=== PATIENT | male | born 1990 | race Caucasian/White ===

== ENCOUNTER 2020-09-24 12:00 | Outpatient (CLI) | payer SELFPAY ==
--- NOTE | 2020-09-24 14:33 | WPDPFTINT ---
PFT Interpretation DOS: 09/24/2020 REQUESTING: EDGAR Ferreira; MD Lonny REASON FOR TESTING: Shortness of breath PULMONARY FUNCTION TESTS Results are reliable and reproducible. Spirometry: The FEV1 is 96% predicted, 3.79 L. The FVC is 105% predicted, 5 L. The FEV1% is slightly decreased, 74%. The FEF25%-75% is decreased at 65%. After bronchodilator, there is a 43% increase in the small airways flows, FEF25%-75%, which is significant. Lung volumes: The total lung capacity is 100%, normal. Slow vital capacity is 105%, normal. Residual volume is 84% predicted, normal. RV/TLC is 22%, normal, indicating that there is no air trapping. Airway resistance is 92%, normal. Diffusion: DLCO is 106%. Flow volume loop: The flow volume loop shows mild scooping of the expiratory limb. IMPRESSION: This study shows a mild obstructive ventilatory impairment in the small airways with a response to bronchodilator in the small airways. In the proper clinical setting, this can be consistent with asthma. The lung volumes and diffusion capacity are normal. Kiya Parsons MD PFT Procedure Performed PFT Procedure Performed Spirometry with Pre/Post Bronchodilator Plethysmography (Lung Vol) Diffusing Cap (DLCO) Flow Vol Loop
== END 2020-09-24 12:01 | disposition home or self-care (01) ==
LOC: CHSCARD 12:03
PROVIDERS: PCP Family Medicine; Visit Provider Family Medicine
DX: R06.02 Shortness of breath (principal)
CPT/HCPCS: 94060; 94726; 94729

== ENCOUNTER 2022-09-05 11:58 | Emergency (ER) | payer OTHER, SELFPAY ==
--- NOTE | ~2022-09-05 | CT_ITS ---
EXAMINATION: CT abdomen pelvis wo con DATE: 09/05/2022 12:34 INDICATION: Left flank and groin pain TECHNIQUE: Computed tomography (CT) of the abdomen and pelvis was performed without intravenous contr ast. The dose-length product was 839.90 mGy-cm. Automated exposure control and iterative reconstructi on technique were employed. COMPARISON: No prior studies for comparison. FINDINGS: Lung bases unremarkable. Heart size normal. No significant pleural or pericardial effusion. Small hiatal hernia. No significant vascular abnormality. No lymphadenopathy. There are surgical priscila nges of cholecystectomy and appendectomy. Nonobstructive bowel gas pattern. No abnormal pelvic masses or fluid collections. No evidence for hernia. There is a 2 mm nonobstructing right renal stone. No l eft renal or ureteral stones. No hydronephrosis. Bladder is not well distended, although unremarkable . No abnormal pelvic masses or fluid collections. Mild lumbar spondylosis. IMPRESSION: 1. No acute abdominal abnormality. 2: Punctate 2 mm nonobstructing right renal stone. Reviewed, dictated and finalized at location A.
[2022-09-05 12:01] VITALS: BP 149/59; PULSE 85; RESP 18; TEMP 36.5; O2SAT 99
[2022-09-05 12:04] VITALS: BP 149/89; PULSE 85; RESP 18; TEMP 36.5; O2SAT 99
--- NOTE | 2022-09-05 12:12 | ED.BACK ---
HPI - Back Pain/Injury General Chief Complaint: Back Pain/Injury Stated Complaint: abdominal/back pain Time Seen by Provider: 09/05/22 11:59 Source: patient and family Mode of arrival: ambulatory Limitations: no limitations History of Present Illness HPI Narrative: this is a 32-year-old gentleman that presents with back pain initially was left upper back settled into his left flank area with radiation into his left groin currently there is no fever chills no nausea vomiting. He did take a dose of muscle relaxant that helped his pain currently pain level is markedly improved down to about a 2/10 with no nausea vomiting no fever chills no diarrhea constipation. No previous history of kidney stones. MD elicited complaint: back pain Onset (ago): hour(s) Timing: improved Severity: mild Quality: dull and aching Location: left flank Radiation: abdomen and groin Related Data Allergies Allergy/AdvReac Type Severity Reaction Status Date / Time Penicillins Allergy Anaphylaxis Verified 09/05/22 12:03 Review of Systems Review of Systems: All systems reviewed & are unremarkable except as noted in HPI and below PMFSH Past Medical History Medical History Patient denies medical problems Exam Const: General: healthy appearing Nutritional Appearance: well nourished Orientation/consciousness: patient oriented x3 HENMT: Head: normal to inspection Face and sinus: normal facial exam Mouth: Yes Normal oral and palatal mucosa present Eyes: Conjunctivae: conjunctivae normal Pupils: Equal, round and reactive pupils present Neck: Neck: normal visual inspection Chest: Chest palpation & inspection: normal inspection of the chest Resp: Effort & Inspection: normal respiratory effort Auscultation: clear to auscultation bilaterally Cardio: Rate: regular rate Rhythm: regular rhythm GI: GI Palp: Yes Soft to palpation Auscultation: normal bowel sounds : General: Yes bladder normal to palpation Urinary Catheter: Urinary Catheter: patent and draining Back/Spine/Pelvis: Back: CVA tenderness Skin: General skin exam: normal color Rashes: no rashes Wounds: no wounds Neuro: General: patient oriented x3, moves all extremities and no meningeal signs Extrem: General: normal to inspection Psych: Mental Status: mental status grossly normal Affect: normal affect Attitude: cooperative Course Course Emergency Course: urinalysis performed and reviewed as well as CBC and CMP and CT scan of the abdomen pelvis without contrast performed and reviewed with patient and family. patient declined pain medication at this time. LFTs were markedly elevated the patient received IV fluids and advised to follow-up with his primary care. Vital Signs Vital signs: Vital Signs Temperature 36.5 C 09/05/22 12:01 Pulse Rate 85 09/05/22 12:01 Respiratory Rate 18 09/05/22 12:01 Blood Pressure 149/59 H 09/05/22 12:01 Pulse Oximetry 99 09/05/22 12:01 Oxygen Delivery Room Air 09/05/22 12:01 Temperature 36.5 C 09/05/22 12:04 Pulse Rate 85 09/05/22 12:04 Respiratory Rate 18 09/05/22 12:04 Blood Pressure 149/89 H 09/05/22 12:04 Pulse Oximetry 99 09/05/22 12:04 Oxygen Delivery Room Air 09/05/22 12:04 Critical Care Time Critical Care Time Critical Care Time: No Discharge Plan Discharge Clinical Impression: Nephrolithiasis, Abnormal LFTs Additional Instructions: advised take medicine as prescribed, and with elevated liver function tests should follow up with primary care physician within 1 week for further evaluation treatment. Prescriptions: New cyclobenzaprine 10 mg tablet 10 mg PO TID Qty: 20 0RF Follow-up/Referrals: Lonny,MD Geovany [Primary Care Provider] -
[2022-09-05 12:29] LABS: Basophils Absolute Auto 0.04 K/mm3 (0.00-0.10); Basophils Percent Auto 0.3 % (0.0-1.0); Eosinophils Absolute Auto 0.02 K/mm3 (0.02-0.50); Eosinophils Percent Auto 0.2 % (1.0-6.0); Hematocrit 44.2 % (40.0-54.0); Hemoglobin 15.9 g/dL (14.0-18.0); Immature Granulocyte Absolute 0.05 K/mm3 (0.00-0.00); Immature Granulocyte Percent A 0.4 % (0.0-0.0); Lymphocytes Absolute Auto 0.67 K/mm3 (1.10-4.50); Lymphocytes Percent Auto 5.2 % (18.0-42.0); Mean Corpuscular Hemoglobin 31.9 pg (27.0-31.0); Mean Corpuscular Volume 88.6 fL (78.0-102.0); Mean Platelet Volume 10.1 fl (8.7-11.0); Monocytes Absolute Auto 0.57 K/mm3 (0.10-0.90); Monocytes Percent Auto 4.4 % (2.0-11.0); Neutrophils Absolute Auto 11.5 K/mm3 (1.7-7.2); Neutrophils Percent Auto 89.5 % (50.0-70.0); Platelet Count Result 199 K/mm3 (150-420); Red Blood Count 4.99 M/mm3 (4.70-6.10); Red Cell Distribution Width 11.7 % (11.6-14.4); White Blood Count 12.8 K/mm3 (4.8-10.8)
[2022-09-05 12:30] LABS: Appearance Urine Clear (Clear); Bilirubin Urine Negative (Negative); Blood Urine Negative (Negative); Color Urine Yellow (Yellow); Glucose Urine UA Negative (Negative); Ketones Urine Negative (Negative); Leukocyte Esterase Ur Negative (Negative); Nitrate Urine Negative (Negative); Protein Urine Negative (Negative); Specific Grav Ur 1.025 (1.010-1.020); pH Urine 6.5 (5.0-8.0)
[2022-09-05 12:32] LABS: Add Urine Microscopic? NO
[2022-09-05 12:44] LABS: Alanine Aminotransferase 462 U/L (16-63); Alkaline Phosphatase 126 U/L (46-116); Anion Gap 8 mmol/L (8-16); Aspartate Amino Transferase 575 U/L (15-37); Bilirubin,Total 1.2 mg/dL (0.00-1.00); Blood Urea Nitrogen 11 mg/dL (7-18); Calcium 8.8 mg/dL (8.5-10.1); Carbon Dioxide 29 mmol/L (21-32); Chloride 102 mmol/L (98-108); Estimated CRCL calculation 107 ml/min; Estimated Glomerular Filt Rate > 60; Glucose 134 mg/dL (70-99); Osmolality Calculated 289 mOsm/kg (285-295); Potassium 3.9 mmol/L (3.5-5.1); Sodium 139 mmol/L (136-145); Total Protein 7.6 g/dL (6.4-8.2)
[2022-09-05] MEDS: SODIUM CHLORIDE 0.9% IV 1,000 ML 999 ML IV CONT (13:01)
[2022-09-05 13:04] VITALS: BP 121/65; PULSE 69; RESP 16; O2SAT 98
[2022-09-05 13:31] VITALS: BP 121/94; PULSE 72; RESP 17; TEMP 36.2; O2SAT 100
== END 2022-09-05 13:34 | disposition home or self-care (01) ==
LOC: CHSED 13:01
PROVIDERS: Emergency Provider Emergency Medicine; PCP Family Medicine
DX: N20.0 Calculus of kidney (principal); R79.89 Other specified abnormal findings of blood chemistry
CPT/HCPCS: 36415; 74176; 80053; 81003; 85025; 99284; J7030